=== PATIENT | male | born 1965 | race Caucasian/White ===

== ENCOUNTER 2025-05-16 09:15 | Outpatient (CLI) | payer OTHER, SELFPAY ==
--- NOTE | ~2025-05-16 | MR_ITS ---
EXAM/PROCEDURE: MR shoulder RT wo con HISTORY: M25.511 - Pain in right shoulder COMPARISON: None available. TECHNIQUE: Multiplanar right shoulder MRI performed without contrast FINDINGS: No fracture subluxation or dislocation present. There is moderately extensive subchondral cystic changes at the greater tuberosity/supraspinatus insertion. See image 14 series 5. There is severe arthrosis at the AC joint, with small to moderate amount of synovial fluid/effusion present with trace amount of subacromial bursal fluid. Spurring and mass affect/deformity of the bursal margin of the supraspinatus present. There appears to be a small partial-thickness tear along the bursal surface as well. No discrete full-thickness or retracted tear. No discrete tear seen in the subscapularis and infraspinatus or teres minor. Mildly hyperintense T2-weighted signal present along the bursal or superficial margin of the infraspinatus tendon as well. No definite labral tear. No gross ligamentous tear. Long head of the biceps tendon is intact within the bicipital groove with partially visualized superior labral attachment which appears intact. Spinoglenoid recess and suprascapular notch regions appear normal. IMPRESSION: 1. 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 No full-thickness or retracted rotator cuff tear seen. Tendinosis or inflammation of the bursal margin of the infraspinatus tendon also. 2. Subchondral cystic changes at the supraspinatus tendon attachment possibly from old injury. Reviewed, dictated and finalized at location [facility] [employer] IMPRESSION: 1. 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 No full-thicknes s or retracted rotator cuff tear seen. Tendinosis or inflammation of the bursal margin of the infraspinatus tendon also. 2. Subchondral cystic changes at the supraspinatus tendon attachment possibly f rom old injury.
== END 2025-05-16 09:16 | disposition home or self-care (01) ==
PROVIDERS: PCP Family Medicine; Visit Provider Family Medicine
DX: M19.011 Primary osteoarthritis, right shoulder (principal); W12.XXXA Fall on and from scaffolding, initial encounter
CPT/HCPCS: 73221